=== PATIENT | male | born 1965 | race Caucasian/White ===

== ENCOUNTER 2018-04-01 05:03 | Emergency (ER) | payer OTHER ==
[~2018-04-01] VITALS: Ht 177.8 cm; Wt 93.8 kg
[2018-04-01 06:23] LABS: HEMATOCRIT 48.9 % (38.0-50.0); HEMOGLOBIN 17.4 G/DL (12.5-16.6); MCH 30.2 PG (29.0-34.0); MCHC 35.6 G/DL (30.0-36.0); MCV 84.9 FL (86-99); RBC DIS.WIDTH-CV 13.2 % (11.8-14.6); RBC DIS.WIDTH-SD 40.3 % (39-53); RED BLOOD COUNT 5.76 M/uL (4.00-5.50)
[2018-04-01 06:30] LABS: ALBUMIN 4.9 g/dL (3.2-4.8); CHLORIDE 104 mEq/L (99-109); POTASSIUM 5.8 mEq/L (3.7-5.4); SODIUM 137 mEq/L (136-147)
[2018-04-01 06:32] LABS: GLUCOSE 116 mg/dL (70-99); TOTAL PROTEIN 8.4 g/dL (6.4-8.3)
[2018-04-01 06:34] LABS: TOTAL BILIRUBIN 0.9 mg/dL (0.0-1.0)
[2018-04-01 06:35] LABS: APPEARANCE CLEAR ((CLEAR)); BILIRUBIN NEGATIVE; BLOOD MODERATE; COLOR YELLOW ((YELLOW)); GLUCOSE (STRIP) NEGATIVE; KETONES 20; LEUKOCYTES NEGATIVE; NITRITE NEGATIVE; PROTEIN (STRIP) NEGATIVE; SPECIFIC GRAVITY 1.023 (1.000-1.030); UROBILINOGEN 0.2 MG/DL (0.2-1.0)
[2018-04-01 06:36] LABS: ALKALINE PHOSPHATASE 62 IU/L (3-129); CREATININE 1.3 mg/dL (0.6-1.3)
[2018-04-01 06:37] LABS: UREA NITROGEN (BUN) 18 mg/dL (9-23)
[2018-04-01 06:38] LABS: AST (GOT) 39 IU/L (2-34)
[2018-04-01 06:39] LABS: ALT (GPT) 34 IU/L (3-49); LIPASE 17 U/L (1.0-51.0)
[2018-04-01 06:44] LABS: BACTERIA NONE SEEN /HPF; EPITHELIAL CELLS NONE SEEN /HPF; HYALINE CASTS 0-5 /LPF; MUCUS TRACE /LPF; RED BLOOD CELLS 40-50 /HPF (0-5); UCUL ADDED? NO; WHITE BLOOD CELLS 0-5 /HPF (0-5)
[2018-04-01 06:51] LABS: GFR ESTIMATE (CALCULATED) > 59 mL/min/ (58.99-99999)
[2018-04-01 07:00] LABS: PLAT.SUFFICIENCY DECREASED; PLATELET COUNT 138 K/uL (156-360)
[2018-04-01] MEDS ORDERED: ZOFRAN4 MG PO (08:28)
[2018-04-01] MEDS ORDERED: PERCOCET 5/31 TABLET PO (08:28)
[2018-04-01] MEDS ORDERED: FLOMAX0.4 MG PO (08:28)
[2018-04-01 08:59] VITALS: BP 163/98
== END 2018-04-01 09:03 | disposition home or self-care (01) ==
LOC: EME 05:03
PROVIDERS: Emergency Medicine
DX: N13.2 Hydronephrosis with renal and ureteral calculous obstruction (principal); E86.0 Dehydration; R31.9 Hematuria, unspecified
CPT/HCPCS: 74177; 80053; 81003; 83690; 85027; 99281; 99285; J2405; J3010; J7030